=== PATIENT | female | born 1940 | race Caucasian/White ===

== ENCOUNTER 2017-12-09 12:07 | Emergency (ER) | payer OTHER ==
[~2017-12-09] VITALS: Ht 160 cm; Wt 30.8 kg
[2017-12-09 13:18] LABS: BASOPHIL (%) 0.3 % (0-1); EOSINOPHIL (%) 0.3 % (0-5); HEMATOCRIT 39.5 % (36.0-46.0); HEMOGLOBIN 12.9 G/DL (11.9-15.5); IMMATURE GRANULOCYTE (%) 0.3 % (0.0-0.7); LYMPHOCYTE (%) 9.6 % (15-42); LYMPHOCYTE COUNT 0.6 K/uL (1.0-2.8); MCH 31.2 PG (29.0-34.0); MCHC 32.7 G/DL (30.0-36.0); MCV 95.6 FL (83-99); MONOCYTE (%) 8.1 % (3-12); MONOCYTE COUNT 0.5 K/uL (0-0.8); NEUTROPHIL (%) 81.4 % (45-76); NEUTROPHIL COUNT 5.4 K/uL (1.8-6.4); PLATELET COUNT 146 K/uL (156-360); RBC DIS.WIDTH-CV 13.8 % (11.8-14.6); RBC DIS.WIDTH-SD 47.8 % (39-53); RED BLOOD COUNT 4.13 M/uL (3.80-5.20); WHITE BLOOD COUNT 6.6 K/uL (4.1-10.2)
[2017-12-09 13:26] LABS: CHLORIDE 103 mEq/L (99-109); POTASSIUM 3.8 mEq/L (3.7-5.4); SODIUM 140 mEq/L (136-147)
[2017-12-09 13:28] LABS: GLUCOSE 91 mg/dL (70-99)
[2017-12-09 13:32] LABS: CREATININE 0.8 mg/dL (0.6-1.3); GFR ESTIMATE (CALCULATED) > 59 mL/min/; UREA NITROGEN (BUN) 18 mg/dL (9-23)
[2017-12-09 15:28] LABS: C DIFF TOXIN NEGATIVE (NEGATIVE)
[2017-12-09 15:50] LABS: APPEARANCE CLEAR ((CLEAR)); BILIRUBIN NEGATIVE; BLOOD SMALL; COLOR YELLOW ((YELLOW)); GLUCOSE (STRIP) NEGATIVE; KETONES NEGATIVE; LEUKOCYTES LARGE; PROTEIN (STRIP) NEGATIVE; SPECIFIC GRAVITY 1.006 (1.000-1.030); UROBILINOGEN 0.2 MG/DL (0.2-1.0)
[2017-12-09 15:55] LABS: BACTERIA 3+ /HPF; EPITHELIAL CELLS RARE /HPF; MUCUS TRACE /LPF; NITRITE POSITIVE; UCUL ADDED? YES; WHITE BLOOD CELLS 40-50 /HPF (0-5)
[2017-12-09] MEDS ORDERED: CIPRO500 MG PO (16:13)
[2017-12-09 17:23] VITALS: BP 110/59
== END 2017-12-09 17:37 | disposition home or self-care (01) ==
LOC: EME 12:07
PROVIDERS: Emergency Medicine
DX: N39.0 Urinary tract infection, site not specified (principal); R19.7 Diarrhea, unspecified; Z93.3 Colostomy status; Z85.41 Personal history of malignant neoplasm of cervix uteri; M06.9 Rheumatoid arthritis, unspecified; Z96.612 Presence of left artificial shoulder joint
CPT/HCPCS: 80048; 81003; 85025; 87077; 87086; 87186; 87493; 99281; 99285; J7030